=== PATIENT | female | born 2000 | race Two or more races ===

== ENCOUNTER 2020-09-30 20:20 | Emergency (ER) | payer OTHER ==
[~2020-09-30] VITALS: Ht 162.6 cm; Wt 95.0 kg
--- NOTE | 2020-09-30 20:39 | PHYS DOC ---
Past History Past Medical History: No Pertinent History Adult General Chief Complaint Chief Complaint: TEST [facility] HPI Patient is a 19-year-old female presenting for concern of being . States her first day last menstrual period was August 16 and that she is concerned about being . States she took a home test 2 days ago that was negative. Patient was concerned as she is developed lower back soreness which was consistent with prior early pregnancies and so, she called [facility], [place] and was subsequently advised to present to our ER for evaluation. She otherwise has no other concerning signs or symptoms such as fever, syncope, chest pain, shortness of breath, abdominal pain, urinary symptoms, changes in bladder or bowel function, red flag signs of back pain, vaginal discharge or vaginal bleeding. Review of Systems Review of Systems Fourteen body systems of review of systems have been reviewed. See HPI for pertinent positives and negative responses, other dave all other systems are negative, non-pertinent or non-contributory Allergies Allergies Allergies Coded Allergies Type Severity Reaction Last Updated Verified Penicillins Allergy Unknown 09/30/20 Yes Physical Exam Physical Exam Constitutional: Pt is oriented to person, place, and time. Pt appears well-developed and well- nourished. HEENT: Head: Normocephalic and atraumatic. External ears unremarkable Conjunctivae and EOM are normal. Pupils are equal, round, and reactive to light. Oropharynx is clear and moist. No hematomas or lacerations or abrasions to face or scalp OP clear, no blood, no malocclusion, dentition intact Nares clear, no nasal septal hematoma Midface stable Neck: C-spine midline nontender, no step-offs Cardiovascular: Normal rate, regular rhythm and normal heart sounds. Pulmonary/Chest: Effort normal and breath sounds normal. No respiratory distress. No wheezes. CTA bilaterally Abdominal: Soft. Bowel sounds are normal. Pt exhibits no distension. There is no tenderness. Musculoskeletal: No bony tenderness to extremities, no deformities, full ROM extremities Chest wall stable Pelvis stable and non-tender No vertebral TTP and spine without stepoffs Neurological: Pt is alert and oriented to person, place, and time. Moving all extremities willfully, able to wiggle all fingers and toes Alert and oriented x 3 Sensation grossly intact Skin: Skin is warm and dry. No abrasions, no lacerations Psychiatric: Behavior is appropriate for situation Current Patient Data Vital Signs Vital Signs Date Time Temp Pulse Resp B/P (MAP) Pulse Ox O2 Delivery O2 Flow Rate FiO2 09/30/20 20:40 97.6 100 18 140/83 (102) 98 Room Air Lab Results Laboratory Tests Test 09/30/20 20:43 09/30/20 20:51 Urine Collection Type Unknown Urine Color Yellow Urine Clarity Clear Urine pH 7.0 Urine Specific Points 1.025 Urine Protein Neg (NEG-TRACE) Urine Glucose (UA) Neg mg/dL (NEG) Urine Ketones (Stick) Neg mg/dL (NEG) Urine Blood Neg (NEG) Urine Nitrite Neg (NEG) Urine Bilirubin Neg (NEG) Urine Urobilinogen Dipstick 0.2 mg/dL (0.2 mg/dL) Urine Leukocyte Esterase Neg (NEG) Urine RBC 0 /HPF (0-2) Urine WBC 1-4 /HPF (0-4) Urine Squamous Epithelial Cells Mod /LPF Urine Bacteria 0 /HPF (0-FEW) Bedside Urine HCG, Qualitative hcg positive (Negative) EKG EKG [] Radiology/Procedures Radiology/Procedures [] Heart Score HEART Score for Chest Pain: HEART Score for Chest Pain Response (Comments) Value History Slighlty/Non-Suspicious 0 Age < 45 0 Risk Factors No Risk Factors 0 Total 0 Risk Factors: Risk Factors: DM, Current or recent (<one month) smoker, HTN, HLP, family history of CAD, obesity. Risk Scores: Risk Factors: DM, Current or recent (<one month) smoker, HTN, HLP, family history of CAD, obesity. Course & Med Decision Making Course & Med Decision Making Pertinent Labs and Imaging studies reviewed. (See chart for details) Discussed most likely diagnosis of in first trimester based on first day last menstrual period I discussed no role of further ER intervention such as laboratory analysis and/or imaging given nonconcerning history and physical examination findings Patient has previously established [facility] she plans to follow-up with this upcoming week which I feel is reasonable Patient educated on strict return precautions that should prompt immediate medical attention should they arise prior to outpatient follow-up. All questions and concerns addressed prior to ER departure in stable condition Dragon Disclaimer Dragon Disclaimer This electronic medical record was generated, in whole or in part, using a voice recognition dictation system. Departure Departure: Impression: Primary Impression: and not yet delivered in first trimester Disposition: 01 DC HOME SELF CARE/HOMELESS Condition: STABLE Referrals: CATHY SRIVASTAVA MD (PCP) Patient Instructions: ABCs of , , - First Trimester Additional Instructions: As discussed prior to ER departure, I would call your previously established [facility] to discuss ER visit today and findings of newly diagnosis of likely in first trimester based on your last menstrual period. I would call them first thing Saturday morning to discuss need for outpatient follow-up. As discussed, there were no emergent and/or surgical findings, there is no indication for further diagnostic work-up and/or intervention while in ER. Please start taking a vitamin daily and follow-up in outpatient setting. If any concerning signs or symptoms present prior to outpatient follow-up please do not hesitate to come back for repeat evaluation It was a pleasure to take care of you and I wish you the best going forward SSII LEI DO Sep 30, 2020 20:39
[2020-09-30 20:40] VITALS: BP 140/83
[2020-09-30 21:19] LABS: BACTERIA,URINE 0 /HPF (0-FEW); BILIRUBIN,URINE NEG (NEG); CLARITY,URINE CLEAR; COLOR,URINE YELLOW; GLUCOSE,URINE NEG (NEG); NITRITE,URINE NEG (NEG); RBC,URINE 0 /HPF (0-2); SQUAMOUS EPITHELIAL CELL,UR MOD /LPF; UROBILINOGEN,URINE 0.2 mg/dL (0.2 mg/dL)
== END 2020-09-30 21:33 | disposition home or self-care (01) ==
LOC: ER 20:20
DX: O26.891 Other specified pregnancy related conditions, first trimester (principal); N89.8 Other specified noninflammatory disorders of vagina
CPT/HCPCS: 81001; 81025; 99283